=== PATIENT | female | born 1960 | race Caucasian/White ===

== ENCOUNTER 2016-07-12 10:00 | Emergency (ER) | payer OTHER ==
[~2016-07-12] VITALS: Ht 152.4 cm; Wt 59.0 kg
--- NOTE | 2016-07-12 10:22 | ED GENERAL ADULT ---
History of Present Illness General Chief Complaint: General Adult Stated Complaint: RAHUL FOR HIP PAIN Vital Signs & Intake/Output Vital Signs & Intake/Output ED Intake and Output 07/13 0000 07/12 1200 Intake Total 100 Output Total Balance 100 Intake, IV 100 Patient 130 lb Weight Allergies Coded Allergies: Penicillins (HIVES 05/30/16) Triage Note: RAHUL FROM [facility]. PT WAS RECEIVING HER 8TH RADIATION TX FOR STAGE 4 BONE CANCER, WITH BRAIN ADRENALS AND BONE METS, C/O WORSENING R HIP PAIN. STATES SHE HAD A R HIP HIP FXD SINCE MAY 2016, DXD AT THE SAME TIME CNCER. WAS ON TYLENOL WITH CODEINE FOR PAIN, SWITCHED TO DILAUDID 2 MG YESTERDAY FOR PAIN, STATES PAIN IS WORSE. Triage Nurses Notes Reviewed? yes HPI: Patient is a 55-year-old very pleasant lady with a past medical history of lung cancer with metastases to brain and spine and currently on radiation therapy, is BIBA from [facility] for evaluation of right hip pain. Patient just received a radiation session, and during the treatment process she was moved around, which led to her complaints of worsening sharp right hip pain. At baseline she does have right hip pain and the recent radiological finding did show multifocal osseous spinal metastases and a mild decompression fracture of the right acetabulum. Patient reports that yesterday her pain regimen was switch from APAP #3 to hydromorphone. Patient states that since taking hydromorphone she feels that her pain has not been adequately controlled, as compared when she was Tylenol #3. Pt not endorse any back pain, saddle anesthesia, or any bowel or urinary incontinence. Patient does not offer any other acute complaints such as chest pain, palpitation, nausea/vomiting, shortness of breath, fever, chills, abdominal pain , dysuria. (SUMMER URENA,EDWARD) General Source: patient Exam Limitations: no limitations Reconcile Medications Acetaminophen With Codeine (Acetaminophen-Cod #4 Tablet) 300 MG-60 MG TABLET 1 TAB PO 4 TIMES/DAY PAIN (Reported) Dexamethasone 4 MG TABLET 4 TAB PO DAILY PAIN (Reported) Hydromorphone HCl 2 MG TABLET 1 TAB PO 4 TIMES/DAY PAIN MAMAGEMENT (Reported ) Melatonin 3 MG TABLET 1 TAB PO QPM SLEEP AIDE (Reported) Omeprazole 40 MG CAPSULE.DR 1 CAP PO DAILY REFLUX (Reported) Onset: Abrupt Duration: week(s): Timing: recent history (LUIS ARMANDO PETER,GUY Leal) Past History Travel History Traveled to [place] past 21 day No Medical History Any Pertinent Medical History? see below for history Neurological: NONE EENT: NONE Cardiovascular: NONE Respiratory: NONE Gastrointestinal: NONE Hepatic: NONE Renal: NONE Musculoskeletal: NONE Psychiatric: NONE Endocrine: NONE Cancer(s): STAGE 4 LUNG ADRENAL, BONE AND BRAIN Surgical History Surgical History: non-contributory Psychosocial History What is your primary language Czech Tobacco Use: Quit >30 days ago ETOH Use: occasional use Family History Hx Contributory? Yes (SUMMER URENA,EDWARD) Review of Systems Review of Systems Constitutional: Denies: chills, diaphoresis, fever, malaise. EENTM: Denies: blurred vision, double vision, visual changes. Respiratory: Denies: orthopnea, short of breath, sputum production. Cardiovascular: Denies: chest pain, edema. GI: Denies: abdominal pain, bloating, constipation. Genitourinary: Denies: dysuria, frequency, hematuria. Musculoskeletal: Reports: joint pain. Skin: Denies: erythema. Neurological/Psychological: Denies: confusion. Hematologic/Endocrine: Denies: bleeding, polyuria, polydipsia. Immunologic/Allergic: Reports: no symptoms. (SUMMER URENA,EDWARD) Physical Exam Physical Exam General Appearance: no apparent distress, alert, awake Head: atraumatic, normal appearance Eyes: Bilateral: normal appearance. Ears, Nose, Throat: normal pharynx, normal ENT inspection Neck: normal inspection, supple, full range of motion Respiratory: normal breath sounds, chest non-tender, no respiratory distress Cardiovascular: regular rate/rhythm Peripheral Pulses: 2+ femoral (R), 2+ femoral (L), 2+ dorsalis pedis (R), 2+ dorsalis pedis (L) Gastrointestinal: normal bowel sounds, soft, non-tender Rectal: deferred Back: no vertebral tenderness Extremities: normal capillary refill, no erythema or swelling noted on right hip area. ROM of right hip is restricted due to pain. Neurologic/Psych: no motor/sensory deficits, awake, alert, oriented x 3, clinical lab specialist II- XII nml as tested, negative babinski. Reflexes: 2+: bicep (R), bicep (L), knee (R), knee (L), ankle (R), ankle (L). Skin: intact, normal color Core Measures ACS in differential dx? No CVA/TIA Diagnosis: No Severe Sepsis Present: No Septic Shock Present: No (SUMMER URENA,EDWARD) Progress Differential Diagnoses I considered the following diagnoses in my evaluation of the patient: Radiology Impression: fracture (right femur) Initial ED EKG: none Comments: Patient received 1 g IV acetaminophen and her pain is now less than 3 and is more comfortable. Dr. Cruz was contacted and recommended morphine and a bone scan, and right hip xray. Pt reported doing better with her pain and rated it a 1/10. (SUMMER URENA,EDWARD) Plan of Care: Orders Procedure Date/time Status Regular Diet 07/12 L Active Hand-Off Endorsed To: GUY DURÁN DO Endorsed Time: 1514 Pending: other (bone scan and dispo) (GEORGES URENA,LUIS ENRIQUE) Differential Diagnoses I considered the following diagnoses in my evaluation of the patient: [Fracture, metastatic disease, intractable pain] (GUY DURÁN DO) Departure Departure Time of Disposition: 1835 Disposition: HOME OR SELF CARE Condition: Stable Referrals: CAITLIN URENA,JACK (PCP/Family) Additional Instructions: Please seek immediate medical attention if your pain worsens Please follow up with Dr. Butler (orthopedic) within a couple of days Please follow up with Dr. Reich within a week Please continue taking your home pain meds Departure Forms: Customer Survey General Discharge Information (SUMMER URENA,EDWARD) PA/KINDERGARTNERS HELPER Co-Sign Statement Statement: ED Attending supervision documentation- [] I saw and evaluated the patient. I have also reviewed all the pertinent lab results and diagnostic results. I agree with the findings and the plan of care as documented in the PA's/KINDERGARTNERS HELPER's documentation. [] I have reviewed the ED Record and agree with the PA's/KINDERGARTNERS HELPER's documentation. [] Additions or exceptions (if any) to the PAs/KINDERGARTNERS HELPER's note and plan are summarized below: [] Resident Co-Sign Statement Statement: ED Attending supervision documentation- x I saw and evaluated the patient. I have also reviewed all the pertinent lab results and diagnostic results. I agree with the findings and the plan of care as documented in the Resident's documentation. [] I have reviewed the ED Record and agree with the Resident's documentation. [] Additions or exceptions (if any) to the Resident's note and plan are summarized below: [] (GEORGES URENA,LUI SENRIQUE) Departure Clinical Impression Primary Impression: Metastatic carcinoma Secondary Impressions: Intractable pain Comments 07/12/16 3 PM The patient was signed out to me by Dr. Jeffers. She is pending results of the nuclear scan. 55-year-old female with known metastatic lung carcinoma, pathologic hip fracture , brain metastases. The patient achieved pain control in the emergency department. She did not want to be admitted or observed in the emergency department, she is being followed for the hip fracture and is currently nonweightbearing. She was discharged and will follow-up with orthopedist this week (GUY DURÁN DO) Critical Care Note Critical Care Note Critical Care Time: non-applicable (SUMMER URENA,EDWARD)
[2016-07-12] MEDS ORDERED: HYDROMORPHONE HC2 M1 PO (15:19)
[2016-07-12] MEDS ORDERED: DEXAMETHASONE4 M1 PO (15:19)
[2016-07-12] MEDS ORDERED: MELATONIN3 M4 PO (15:20)
[2016-07-12] MEDS ORDERED: OMEPRAZOLE40 M1 PO (15:20)
[2016-07-12] MEDS ORDERED: ACETAMINOPHEN-1 EAC2 PO (15:20)
--- NOTE | 2016-07-12 16:55 | RADIOLOGY REPORT ---
EXAMINATION: XR FEMUR, RIGHT CLINICAL INFORMATION: Right hip pain. Evaluate for fracture. COMPARISON: None. TECHNIQUE: AP and crosstable lateral views of the right femur. FINDINGS: AP and crosstable lateral views of the right femur demonstrate diffuse patchy and sclerotic lucencies scattered throughout the right femoral neck as well as the proximal right femur with an associated fracture of the right femoral neck, suspicious for a pathological fracture given the patient's history of underlying malignancy. There are also partially visualized lucencies involving the right lateral aspect of the right iliac wing. There is no appreciable fracture involving the mid or distal diaphyses of the right femur. The right knee appears to be grossly intact. There are mild degenerative changes involving the right knee joint. IMPRESSION: Patchy and sclerotic foci scattered throughout the right femoral neck as well as the proximal right femur, suspicious for osseous metastasis given the patient's underlying history of malignancy. There is a fracture of the right femoral neck, suspicious for a pathological fracture.
--- NOTE | 2016-07-12 17:28 | NUCLEAR MEDICINE REPORT ---
EXAMINATION: NM BONE SCAN WHOLE BODY CLINICAL INFORMATION: Worsening of bone metastases. Worsening right hip pain. COMPARISON: No previous bone scan is available for comparison. The diagnostic CT scan of the chest, abdomen, and pelvis, dated 06/13/2016, is available for comparison. MRI of the cervical, thoracic, lumbar spine dated 07/10/2016 is available for comparison also. TECHNIQUE: Multiple gamma scintillation camera images of the whole body were performed 2.25 hours following the intravenous administration of 24.7 mCi Tc-99m HDP. FINDINGS: In the head, no significant abnormalities are present. In the thoracic cage and upper extremities, there is mildly increased activity in the coracoid process of the right scapula. In the spine, there is moderately intense abnormally increased activity in the T5 vertebral body. There is a mild thoracolumbar scoliosis with lumbar convexity to the left. There is also mildly increased activity in the lumbar spine at L4 and L5, predominantly in the posterior elements bilaterally. In the pelvis, multiple foci of mildly to moderately increased activity present in the pelvis, the most prominent of which is in the posterior left iliac bone adjacent to the superior aspect of the left sacroiliac joint. Additional abnormalities are present in the right sacroiliac region, the posterior right iliac crest and the left supra-acetabular left iliac bone which is moderately intense there is also mildly increased activity in the right acetabulum diffusely, likely extending into the adjacent right ischium. In the lower extremities, there is deformity in the right hip likely due to a fracture in the right femoral neck and there is diffusely increased activity in the proximal shaft and intertrochanteric region of the right femur. A small discrete focus of mildly increased activity is present more distally in the mid to distal shaft in the medial cortical region of the right femur. There is also a mild diffuse increase in activity in the medial trochanteric region of the proximal left femur and the adjacent proximal left femoral shaft. There is intensely increased activity in the distal metaphyseal region of the left femur extending into the intercondylar notch region and the medial portion of the lateral femoral condyle on the left. There is also moderately intense abnormally increased activity in the distal left tibia at the ankle. No other definite bony abnormalities are noted. The urinary bladder and faint visualization of both kidneys are noted. There is a small focal defect present laterally in the lower pole of the left kidney. The CT scan dated 06/13/2016 shows corresponding fracture and metastasis in the proximal right femur as well as a lytic lesion in the medial intertrochanteric region of the proximal left femur an extensive metastatic disease in the supra-acetabular right iliac bone and an extensive erosive lytic metastasis in the right iliac weighting, and a lytic lesion in the posterior left iliac bone adjacent to the sacroiliac joint, all corresponding to bone scan abnormalities described above. IMPRESSION: 1. Deformity and diffuse abnormality in the proximal right femur is most likely due to metastatic disease involving the described proximal right femur and a fracture in the right femoral neck. There is relatively decreased activity in the right femoral head which may be due to avascular necrosis possibly secondary to the fracture. 2. Additional abnormalities are noted as described in the pelvis, spine, left femur and tibia, and right scapula all likely metastatic in etiology. 3. Abnormality in the inferolateral aspect of the left kidney corresponds to a mass at this site in the 06/13/2016 CT scan.
[2016-07-12 18:20] VITALS: BP 156/82
== END 2016-07-12 19:01 ==
LOC: ERH 10:00
DX: C79.31 Secondary malignant neoplasm of brain (principal); C79.51 Secondary malignant neoplasm of bone; R52 Pain, unspecified
CPT/HCPCS: 73552; 96365; 96375; 96376; A9561; J0131